=== PATIENT | male | born 1990 | race Caucasian/White ===

== ENCOUNTER 2021-07-03 09:00 | Emergency (ER) | payer BC, SELFPAY ==
[2021-07-03 09:05] VITALS: BP 139/84; PULSE 98; RESP 21; TEMP 37.2; O2SAT 98; BMI 27.1
[2021-07-03 09:42] LABS: UTC Influenza A Antigen Negative (Negative); UTC Influenza B Antigen Negative (Negative)
--- NOTE | 2021-07-03 09:44 | HMH.EDUTC ---
[facility] [place] Clinical Impression: COVID-19 virus test result unknown Maxillary sinusitis Qualifiers: Chronicity: acute Recurrence: non-recurrent Qualified Code(s): J01.00 - Acute maxillary sinusitis, unspecified Disposition: Home, Self-Care Condition on Discharge: Good Instructions: DI for Sinusitis, How to Care for Someone with COVID-19 Additional Instructions: Start antibiotic patient to take as ordered for a full length of time even if you feel better. Sinus infections do not get better overnight. It may take 2-3 days to notice much improvement so be sure to use conservative measures as discussed for symptoms. Flonase 1 spray each nostril daily to help with nasal congestion, sinus and ear pressure/information Increase fluids Humidifier/vaporizer as needed Tylenol and ibuprofen as needed for fever or pain. If symptoms do not improve or get worse return or be seen in the ER Follow-up with primary care this week covid swab was sent to lab, call later today for results. self isolate until test results are known to be negative Prescriptions: Fluticasone Propionate [Flonase 50mcg nasal spray 16gm] 1 spr NS DAILY 14 Days #9.9 ml Prescription Printed Azithromycin [Zithromax 250mg tab] 250 mg PO DIRECTED #6 tab Prescription Printed Referrals: Provider,Referral, MD [Primary Care Provider] - Forms: Work/School Release Time of Disposition: 09:49 Medical Decision Making - Dedrick Inquiry Pt receiving controlled substance: No Vital Signs: 07/03/21 09:05 Temperature 99.0 F Temperature Source Oral Pulse Rate [Right Brachial] 98 H Respiratory Rate 21 Blood Pressure [Right Arm] 139/84 Blood Pressure Mean [Right Arm] 102 Blood Pressure Source [Right Arm] Automatic Cuff Blood Pressure Position [Right Arm] Sitting 02 Sat by Pulse Oximetry 98 Oxygen Delivery Method Room Air - Lab Data Lab Results 07/03/21 09:28: Influenza Type A Ag Negative, Influenza Type B Ag Negative Orders (Tests/Meds): ORDERS Category Date Time Status Covid-19 Nasal PCR ([facility]) Routine Lab 07/03/21 09:28 [place]dered [facility] [place] - General Chief complaint: [facility] Stated complaint: covid symptoms Time Seen by Provider: 07/03/21 09:44 Mode of Arrival: Ambulatory Source of Information: Patient Limitations: No Limitations Description of Symptoms (Recalled from Triage Doc. by RN): PATIENT C/O CONGESTION, FEVER, AND BODY ACHES X 3 DAYS HEENT Symptoms (Recalled from RN notes): Yes Resp Symptoms (Recalled from RN notes): No Skin Symptoms (Recalled from RN notes): No MS Symptoms (Recalled from RN notes): No Functional Status (Recalled from RN notes): WNL - History of Present Illness Provider Complaint: 30 yr old male presents for dark yellow nasal congetion,sinus pressure,sinus pain, fever and body aches for 3 days - Related Data Previous Rx's Medication Instructions Recorded Azithromycin [Z-Taco 250mg Tab*] 250 mg PO UD DOSE PK #6 tab 02/10/19 Azithromycin [Zithromax 250mg 250 mg PO DIRECTED #6 tab 07/03/21 tab] Fluticasone Propionate [Flonase 1 spr NS DAILY 14 Days #9.9 ml 07/03/21 50mcg nasal spray 16gm] Allergies Allergy/AdvReac Type Severity Reaction Status Date / Time No Known Allergies Allergy Verified 02/10/19 15:53 - Worker's Comp Is this a Worker's Comp case?: No [facility] History - Hepatitis A Screen Drug use history?: No High risk sexual behaviors?: No History of sexually transmitted infection?: No Currently employed?: No Childcare worker?: No Do you have indoor plumbing?: Yes Do you have electricity?: Yes Attestation statement:: This patient has been screened for Hepatitis A risk factors. I have reviewed the patient's past medical history: Yes Fractures: Yes (THUMB) - Social History Alcohol Intake: never Occupational Status: other ROS Obtained: Yes Systems reviewed as appropriate & no additional complaints - Constitutional Constitutional: Repor
[2021-07-03 09:54] VITALS: BP 139/84; PULSE 98; RESP 21; TEMP 37.2; O2SAT 98
== END 2021-07-03 10:00 | disposition home or self-care (01) ==
PROVIDERS: Nurse Practitioner; Emergency Provider Nurse Practitioner Family
DX: J01.00 Acute maxillary sinusitis, unspecified (principal); Z20.822 Contact with and (suspected) exposure to COVID-19
CPT/HCPCS: 87804; 99202; C9803; G0463; U0003; U0005

== ENCOUNTER 2021-07-29 09:07 | Emergency (ER) | payer BC, SELFPAY ==
[2021-07-29 09:25] VITALS: BP 135/73; PULSE 113; RESP 24; TEMP 38.8; O2SAT 97; BMI 29.2
--- NOTE | 2021-07-29 09:45 | HMH.EDUTC ---
[facility] [place] Clinical Impression: Viral upper respiratory tract infection with cough Disposition: Home, Self-Care Condition on Discharge: Good Instructions: Cough, DI for COVID-19 (Suspected or Confirmed ), Sore Throat Additional Instructions: *Monitor Temp, Over the counter Motrin or Tylenol as directed/as needed Tylenol every 4 hours and Motrin every 6 hours (as long as your family doctor has told you that you can take it) for fever or pain. and straight to ER if unable to lower temp less than 101.0 after medication given *Warm salt water gargles may help to soothe the throat *Throat Lozenges *Warm fluids like tea with honey may help to soothe the throat *Sleep elevated *Humidifier/Vaporizer Your throat swab was sent for culture. Those results are typically sent to your primary care. Be sure to follow up in 2-3 days with your family doctor/primary care physician if no improvement so they can review those result and treat if necessary. If you don?t have a primary care doctor, I recommend you get one but in the mean time, you will have to return to a walk in clinic Follow up IMMEDIATELY for new or worsening symptoms or no Noticeable improvement over the next 48-72 hours. 911 for difficulty breathing or swallowing You were tested for today for COVID19 your test result should be back in the next 24-48 hours, you may check your results on the [facility] my health Portal if you have trouble logging on you can call Tech Support You was given a handout with instructions for Self Quarantine and Self isolation for while you wait on test results and what to do if they are positive If you are positive the Health Dept will be contacting you also Make sure to take your Vitamins Vit. C Vit D and Zinc if you can take them Prescriptions: Brompheniramine/Pseudoephed/Dm [Bromfed Dm Cough Syrup] 5 - 10 ml PO Q46H PRN #200 ml PRN Reason: Cough Transmission Status: Pending to [facility] #[id number] Referrals: Monae Boss APRN [Primary Care Provider] - Forms: Work/School Release Time of Disposition: 10:31 Medical Decision Making - Dedrick Inquiry Pt receiving controlled substance: No Dedrick was queried for this patient: No Vital Signs: 07/29/21 09:25 07/29/21 09:58 Temperature 101.8 F H 101.8 F H Temperature Source Oral Pulse Rate 113 H Pulse Rate [Left Brachial] 113 H Respiratory Rate 24 24 Blood Pressure 135/73 Blood Pressure [Left Arm] 135/73 Blood Pressure Mean [Left Arm] 93 Blood Pressure Source [Left Arm] Automatic Cuff Blood Pressure Position [Left Arm] Sitting 02 Sat by Pulse Oximetry 97 Oxygen Delivery Method Room Air - Lab Data Lab results reviewed: Yes: I reviewed the patient's lab results. Lab Results 07/29/21 09:42: Group A Strep Rapid Negative 07/29/21 09:42: Influenza Type A Ag Negative, Influenza Type B Ag Negative Orders (Tests/Meds): ED MEDICATIONS Discontinued Medications Generic Name Dose Route Start Last Admin Trade Name Edgar PRN Reason Stop Dose Admin Ibuprofen 800 mg 07/29/21 09:42 07/29/21 09:44 Ibuprofen 400 Mg Tablet PO 07/29/21 09:43 800 mg ONCE ONE Administration ORDERS Category Date Time Status Covid-19 Nasal PCR ([facility]) Routine Lab 07/29/21 09:41 Received Strep Screen Confirmation Stat Micro 07/29/21 09:42 Received [facility] UTC HPI - General Stated complaint: sore throat, cough, runny nose headache, congestio Time Seen by Provider: 07/29/21 09:45 Mode of Arrival: Ambulatory Source of Information: Patient Limitations: No Limitations Description of Symptoms (Recalled from Triage Doc. by RN): PATIENT C/O FEVER, COUGH, MUSCLE ACHES AND HEADACHES SINCE YESTERDAY HEENT Symptoms (Recalled from RN notes): Yes Resp Symptoms (Recalled from RN notes): Yes Skin Symptoms (Recalled from RN notes): No MS Symptoms (Recalled from RN notes): Yes Functional Status (Recalled from RN notes): WNL - History of Present Illness Provider Complaint: Patient stat
[2021-07-29 09:54] LABS: UTC Influenza A Antigen Negative (Negative); UTC Influenza B Antigen Negative (Negative)
[2021-07-29 09:58] VITALS: BP 135/73; PULSE 113; RESP 24; TEMP 38.8; O2SAT 97
[2021-07-29 10:26] LABS: Strep Scrn Group A (Rapid) Negative (Negative)
== END 2021-07-29 10:42 | disposition home or self-care (01) ==
PROVIDERS: Emergency Provider Nurse Practitioner; PCP Nurse Practitioner Family
DX: U07.1 COVID-19 (principal); J06.9 Acute upper respiratory infection, unspecified; F17.210 Nicotine dependence, cigarettes, uncomplicated
CPT/HCPCS: 87430; 87804; 99203; C9803; G0463; U0003; U0005

== ENCOUNTER 2022-03-03 16:18 | Emergency (ER) | payer BC, SELFPAY ==
--- NOTE | 2022-03-03 17:51 | EXP.UTC ---
Discharge Plan Disposition Patient Disposition: Home, Self-Care Condition: Good Prescriptions Prescriptions: New ibuprofen [IBU] 800 mg tablet 800 mg PO Q8HP PRN (Reason: Moderate Pain) Qty: 30 0RF etjbxsapnqjrkos-hovmnklbc-HR [Bromfed DM] 2-30-10 mg/5 mL Syrup 5 ml PO Q6H PRN (Reason: Cough) Qty: 240 0RF ondansetron 4 mg Tablet,Disintegrating 4 mg PO Q8H PRN (Reason: Nausea) Qty: 20 0RF No Action nacmfgqduoswfkm-rmpreuium-QC 118 ML syrup 5 - 10 ml PO Q46H PRN (Reason: Cough) Qty: 200 0RF Referrals Referrals: Monae Boss APRN [Primary Care Provider] - Enter time for follow up Activity Restrictions/Add. Instructions Additional Instructions/Restrictions: Drink plenty of fluids. Take tylenol for pain or fever. Return if you begin to have difficulty breathing. Follow up with your regular doctor. GO TO THE ER FOR ANY WORSENING SYMPTOMS Quarantine until you know the results of your covid-19 test. Notify your school or workplace of your results and follow their instructions regarding return to work/school. Clinical Impressions Clinical Impression: Close exposure to COVID-19 virus, Acute viral syndrome Stand Alone Forms Stand Alone Forms: Work/School Release Instructions Patient Instructions: Coronavirus Disease 2019, Preventing the Spread of Coronavirus Discharge Instructions Discharge ED Provider: Seth Lima [facility] [place] General Stated complaint: covid exposure, fever, body aches Time Seen by Provider: 03/03/22 17:52 History of Present Illness Provider Complaint: He states that for the past 2 days he has had sinus congestion, sore throat and body aches. Related Data Previous Rx's Medication Instructions Recorded gntdfsdxkulqzzk-xypvteynajjcmls-GR 5 - 10 ml PO Q46H PRN Cough #200 mL 07/29/21 2 mg-30 mg-10 mg/5 mL oral syrup ruhjxzjtmqgoklt-hdeuxzafqvbthxb-HG 5 ml PO Q6H PRN Cough #240 mL 03/03/22 2 mg-30 mg-10 mg/5 mL oral syrup (Bromfed DM) ibuprofen 800 mg tablet (IBU) 800 mg PO Q8HP PRN Moderate Pain 03/03/22 #30 tabs ondansetron 4 mg disintegrating 4 mg PO Q8H PRN Nausea #20 tabs 03/03/22 tablet Allergies Allergy/AdvReac Type Severity Reaction Status Date / Time No Known Allergies Allergy Verified 03/03/22 18:02 PFSH PFSH Social History Smoking Status: Current every day smoker tobacco type: cigarettes packs per day: 1 alcohol intake: current current occupational status: other ROS Obtained: Yes All systems reviewed & no additional complaints except as documented Constitutional Constitutional: Reports chills and Reports fever(s) Eyes Eyes: Denies eye discharge ENT Ears, Nose, Mouth, and Throat: Reports as per HPI Cardiovascular Cardiovascular: Denies chest pain Respiratory Respiratory: Denies chest congestion and Reports cough Gastrointestinal Gastrointestingal: Reports nausea; Denies abdominal pain, constipation, cramping, diarrhea or vomiting Musculoskeletal Musculoskeletal: Denies arthralgias Integumentary/Breasts Skin/Breast: Denies rash Neurologic Neurologic: Denies paresthesias Physical Exam General General appearance: alert and in no apparent distress Head Head exam: atraumatic and normocephalic Eye Eye exam: Present normal appearance, PERRL and EOMI ENT ENT exam: Present normal exam, normal oropharynx, mucous membranes moist and TM's normal bilaterally Neck Neck exam: Present normal inspection, full ROM and trachea midline; Absent tenderness, meningismus or lymphadenopathy Chest Chest inspection: Present normal inspection and symmetric chest wall rise; Absent tenderness Respiratory Respiratory exam: Present normal lung sounds bilaterally; Absent respiratory distress, wheezes or stridor Cardiovascular Cardiovascular exam: Present regular rate, normal rhythm and normal heart sounds Abdominal Exam Abdominal exam: Present soft and normal bowel sounds; Absent distent
[2022-03-03 18:00] VITALS: BP 144/77; PULSE 90; RESP 16; TEMP 37.8; O2SAT 98; BMI 28.5
[2022-03-03 18:30] VITALS: BP 144/77; PULSE 90; RESP 16; TEMP 37.2
== END 2022-03-03 18:32 | disposition home or self-care (01) ==
PROVIDERS: Emergency Provider Nurse Practitioner Family; PCP Nurse Practitioner Family
DX: U07.1 COVID-19 (principal); J02.9 Acute pharyngitis, unspecified; R11.0 Nausea; M79.10 Myalgia, unspecified site; F17.210 Nicotine dependence, cigarettes, uncomplicated; Z79.1 Long term (current) use of non-steroidal anti-inflammatories (NSAID)
CPT/HCPCS: 99213; C9803; G0463; U0003; U0005

== ENCOUNTER 2023-01-04 08:01 | Emergency (ER) | payer BC, SELFPAY ==
[2023-01-04 08:05] VITALS: BP 147/97; PULSE 66; RESP 18; TEMP 36.9; O2SAT 98; BMI 30.2
--- NOTE | 2023-01-04 08:15 | XR_ITS ---
FINAL REPORT CLINICAL HISTORY: pain in lower ribs FINDINGS: RIGHT RIB SERIES 3 views of the right ribs were obtained. There is no displaced rib fracture. There is no pneumothorax or pleural fluid collection. A frontal view of the chest is unremarkable. IMPRESSION: No displaced rib fracture is identified. Reviewed, Interpreted and Dictated by Ron Tello III, MD Transcribed by Shy Haynes Authenticated and . [facility]
--- NOTE | 2023-01-04 08:23 | EXP.UTC ---
Discharge Plan Disposition Patient Disposition: Home, Self-Care Condition: Good Referrals Follow up/Referrals: Monae Sutton APRN [Primary Care Provider] - See instructions Activity Restrictions/Add. Instructions Additional Instructions/Restrictions: *Ibuprofen anthony 6 hours with meal as needed for pain/inflammation *Not additional anti-inflammatory like motrin, aleve, advil with the above amount of ibuprofen. You can still take Tylenol every 4 hours as needed if you need something else for pain *Keep this area active, no movement leads to more stiffness, However take it easy and avoid heavy lifting pushing or pulling *Follow up with you family doctor if no improvement for further treatment Make sure that you are having normal bowel movements and sometimes trapped gas can cause pain and discomfort over the counter Gas x may help ???Straight to ER if pain worsens or any life threatening symptoms? Clinical Impressions Clinical Impression: Rib pain on right side Stand Alone Forms Stand Alone Forms: Work/School Release Instructions Patient Instructions: Ibuprofen Discharge ED Provider: Marley Romero [facility] General Stated complaint: Abd pain headaches Mode of Arrival: Ambulatory Source of Information: Patient Limitations: No Limitations Time Seen by Provider: 01/04/23 08:23 Description of Symptoms (Recalled from Triage Doc. by RN): PATIENT C/O PAIN TO RIGHT LOWER RIB AREA AND LOW ENERGY SINCE YESTERDAY HEENT Symptoms (Recalled from RN notes): No Resp Symptoms (Recalled from RN notes): No Skin Symptoms (Recalled from RN notes): No MS Symptoms (Recalled from RN notes): Yes Functional Status (Recalled from RN notes): WNL History of Present Illness Provider Complaint: Patient states that he has been having pain in his right lower rib area and feels better when he leans to the side to stretch the area to help relieve the pain States that it started yesterday Denies radiation to anywhere and denies known injury Denies worsening with food or eating Last BM yesterdayStates he did have a headache last night but it is gone now and feeling tired Related Data Allergies Allergy/AdvReac Type Severity Reaction Status Date / Time No Known Allergies Allergy Verified 10/02/22 10:45 Worker's Comp Is this a Worker's Comp case?: No [facility] Disclaimer: The information contained in this section may have been updated after the patient was seen, as this information can be updated by other users. Social History (Updated 03/03/22 @ 22:30 by Seth Lima APRN) Smoking Status: Current every day smoker tobacco type: cigarettes packs per day: 1 alcohol intake: current substance use type: denies use current occupational status: other Travel in the last 8 weeks: None ROS Obtained: Yes All systems reviewed & no additional complaints except as documented and Yes Systems reviewed as appropriate & no additional complaints except as documented Constitutional Constitutional: Reports system reviewed and no additional complaints, except as documented, Reports as per HPI, Denies body ache, Denies chills, Reports fatigue, Denies fever(s) and Reports headache(s) (last night but gone now) ENT Ears, Nose, Mouth, and Throat: Reports system reviewed and no additional complaints, except as documented, Reports as per HPI and Reports headache(s) (last night but gone now) Cardiovascular Cardiovascular: Reports system reviewed and no additional complaints, except as documented, Reports as per HPI, Denies chest pain and Denies dyspnea Respiratory Respiratory: Reports system reviewed and no additional complaints, except as documented, Reports as per HPI, Denies shortness of breath, Denies cough and Denies dyspnea Gastrointestinal Gastrointestingal: Reports system reviewed and no additional complaints, except as documented and as per HPI; Denies abdominal pain Musculoskeletal Musculoskeletal: Reports system reviewed and no additional co
[2023-01-04 09:24] VITALS: BP 147/97; PULSE 66; RESP 18; TEMP 36.9; O2SAT 98
== END 2023-01-04 09:30 | disposition home or self-care (01) ==
PROVIDERS: Emergency Provider Nurse Practitioner; PCP Nurse Practitioner Family
DX: R07.81 Pleurodynia (principal); F17.210 Nicotine dependence, cigarettes, uncomplicated
CPT/HCPCS: 71101; 99212; 99214; G0463

== ENCOUNTER 2024-12-15 11:47 | Outpatient (CLI) | payer BC, SELFPAY ==
--- OUTSIDE RECORDS SUMMARY | 2024-12-15 11:54 | XMS_ITS | Clinical Summary ---
Author Organization [facility] Address [address] [place] [id number] Phone [email or web address] Care Team Providers Care Technical Report Writer Name Role Phone Unavailable Primary Care Provider Unavailabl e Allergies No known active allergies Medications No known medications Active Problems Problem Noted Date Diagnosed Date General medical examination 08/14/2012 Overview (12/05/2017): Health examination of defined subpopulation 12/08 Overview (12/05/2017): Social History Tobacco Use Types Packs/Day Years Used Date Smoking Tobacco: Some Days Cigarettes Smokeless Tobacco: Former Chew Intimate Partner Violence Answer Date R ecorded Insults You Not on file 10/20/2020 Threatens You Not on file 10/20/2020 Screams at You Not on file 10/20/2020 Physically Hurt Not on file 10/20/2020 Intimate Partner Violence Score Not on file 10/20/2020 Stress Answer Date Recorded Stress in your Life Not on file 05/12/2024 Dealing with Stress 3 05/12/2024 Sex and Gender Information Value Date Recorded Sex Assigned at Not on file Legal Sex Male 12:18 PM CDT Gender Identity Not on file Sexual Orientation Not on file Last Filed Vital Signs Vital Sign Reading Time Taken Comments Blood Pressure 130/80 02/20/2019 3:01 PM EDT Pulse 94 08/18/2020 10:03 AM EST Temperature 37.2 C (99 F) 08/09/2021 6:38 PM EST Respiratory Rate - - Oxygen Saturation 97% 08/18/2020 10:03 AM EST Inhaled Oxygen Concentration - - Weight 97.1 kg (214 lb) 02/20/2019 2:43 PM EDT Height 182.9 cm (6') 02/20/2019 2:43 PM EDT Body Mass Index 29.02 02/20/2019 2:43 PM EDT Plan of Treatment Health Maintenance Due Date Last Done Comments Dental Cleaning/Exam 1990 HIV Screening 1990 Hepatitis C Screening 1990 Hep B Infection Screening - Triple Screen 2008 Hepatitis B Immunization (1 of 3 - 19+ 3-dose series) 2009 Pneumococcal: Ped (0 to 5 Yr s) and At-Risk Member (6 to 64 Yrs) (1 of 2 - PCV) 2009 Tetanus Diphtheria and Pertu ssis Immunization (1 - Tdap) 2009 Annual Preventive Exam 08/22/2019 08/22/2018 Covid-19 Immunization (1 - 2 -25 season) 2024 Influenza Immunization (Seas on Ended) 2025 HIB Immunization Aged Out No longer e ligible based on patient's age to complete this topic HPV Immunization Aged Out No longer e ligible based on patient's age to complete this topic Hepatitis A Immunization Aged Out No longer eligible based on patient's age to complete this topic Polio Immunization Aged Out No longer eligible based on patient's age to complete this topic Varicella Immunization Aged Out No lo nger eligible based on patient's age to complete this topic Insurance [place] [id number] [place] [address]
[2024-12-15 12:29] LABS: Basophils % 0.5 % (0.1-2.0); Eosinophils % 0.3 % (0.1-12.0); Hematocrit 44.8 % (42.0-52.0); Hemoglobin 15.4 g/dL (14.1-18.0); Immature Granulocytes # 0.02 10^3uL; Immature Granulocytes % 0.3 %; Lymphocytes # 1.8 K/mm3 (0.7-4.5); Lymphocytes % 27.7 % (10-50); Mean Corpuscular HGB Conc 34.4 g/dL (31.8-35.4); Mean Corpuscular Hemoglobin 30.3 pg (27.0-31.2); Monocytes # 0.4 K/mm3 (0.1-1.0); Monocytes % 6.6 % (1.7-9.3); Neutrophils # 4.3 K/mm3 (1.8-7.8); Neutrophils % 64.6 % (37.0-80.0); Nucleated Red Blood Cells # 0 10^3/uL; Nucleated Red Blood Cells % 0 %; Platelet Count 352 K/mm3 (142-424); Red Blood Count 5.09 M/mm3 (4.60-6.20); Red Cell Distribution Width 11.5 % (11.5-17.5); Red Cell Distribution Width-SD 37.3 fL; White Blood Count 6.7 K/mm3 (4.8-10.8)
[2024-12-15 13:26] LABS: Albumin Level 4.8 g/dl (3.5-5.0); Chloride 105 mmol/L (98-107); Potassium 4.2 mmoL/L (3.5-5.1); Sodium 140 mmol/L (136-145)
[2024-12-15 13:29] LABS: Alanine Aminotransferase 34 U/L (12-78); Albumin/Globulin Ratio 1.6 (1.1-1.8); Alkaline Phosphatase 99 U/L (38-126); Anion Gap 10.2 mEq/L (5-15); Aspartate Amino Transferase 31 U/L (17-59); Bilirubin,Total 0.6 mg/dl (0.2-1.3); Blood Urea Nitrogen 10 mg/dl (9-20); Calcium 9.6 mg/dl (8.4-10.2); Carbon Dioxide 29 mmol/L (22.0-30.0); Estimated Glomerular Filt Rate 97 ml/min (>60); GFR (African American) 118 ML/MIN (>60); Glucose 103 mg/dl (74-100); Total Protein,Serum 7.8 g/dl (6.3-8.2)
[2024-12-15 14:00] LABS: Thyroid Stimulating Hormone 1.76 uIU/mL (0.465-4.68)
[2024-12-15 17:23] LABS: 25-OH Vitamin D, Total 34.5 ng/mL (30-100)
[2024-12-15 18:02] LABS: Vitamin B12 759 pg/mL (239-931)
[2024-12-17 10:02] LABS: Hemoglobin A1C 5.4 % (4.0-6.0)
== END 2024-12-15 23:59 | disposition home or self-care (01) ==
LOC: RT 11:48
PROVIDERS: PCP Nurse Practitioner Family; Visit Provider Nurse Practitioner Family
DX: R55 Syncope and collapse (principal); R42 Dizziness and giddiness; R20.2 Paresthesia of skin; R73.09 Other abnormal glucose
CPT/HCPCS: 36415; 80053; 82306; 82607; 83036; 84443; 85025; 93225; 93226

== ENCOUNTER 2025-01-14 14:14 | Outpatient (CLI) | payer BC, SELFPAY ==
--- NOTE | 2025-01-14 | CA_ITS ---
APPROVED REPORT EXAM: Comprehensive 2D, Doppler, and color-flow Echocardiogram Revenue Specialist: Janelle Lovelace, LEIDY, RVS Ht: 6 ft 0 in Wt: 210lbs BSA: 2.18 BP: 142/85 mmHg Indications: Dizziness, Palpitations, HTN Echo Enhancing Agent Indication: Rule Out Septal Defect Agent(s) / Amount(s) Used: Agitated Saline 20 cc Comments: Negative 2D Dimensions Left Atrium 3.01 cm LA Volume 38.00 mL LA Volume Index [id number] mL/m2 (M/F) 16-34 M-Mode Dimensions RVDd 2.18 cm (0.9-2.6) LA Diam 3.73 cm (1.9-4.0) LVDd 5.80 cm (3.5-5.7) LVDs 3.61 cm (3.5-5.7) IVSd 1.00 cm (0.6-1.1) PWd 0.97 cm (0.6-1.1) EF (Teich) 67.10% EPSs 0.57 cm FS 37.80% EDV (Teich) 166.60 mL TAPSE 3.19 (<1.7) ESV (Teich) 54.80 mL LV Diastology E Decel Time 257 (160-240 msec) E/A Ratio 1.51 MED A' 14.70 cm/s LAT A' 10.00 cm/s Aortic Valve ELIESER Index 1.26 cm2/m2 AoV Peak Josef. 153.0 (50-130 cm/s) AO Peak GR. 9.40 mmHg AO Mean GR. 4.70 (<5 mmHg) AO VTI 26.6 (18-25 cm) ELIESER (VTI) 2.81 (2.5-4.5 cm2) Mitral Valve MV A Velocity 53.0 (40-130 cm/s) E/A Ratio 1.51 Pulmonary Valve IN End VMAX 180.0 cm/s Tricuspid Valve TR P. Velocity 168.00 cm/s Left Ventricle The left ventricle is normal size. The left ventricular systolic function is normal. The left ventricular ejection fraction is within the normal range. There is normal left ventricular wall thickness. There is normal LV segmental wall motion. The left ventricular diastolic function is normal. LVEF is 55%. Right Ventricle The right ventricle is normal size. The right ventricular systolic function is normal. Atria The left atrium size is normal. The right atrium size is normal. There is no Doppler evidence of interatrial shunt. Agitated saline administration demonstrates no evidence of interatrial shunt. Aortic Valve The aortic valve opens well. The aortic valve is trileaflet. There is no aortic valvular stenosis. No aortic regurgitation is present. Mitral Valve The mitral valve is normal in structure. No evidence of mitral valve stenosis. There is no mitral valve regurgitation noted. Tricuspid Valve Tricuspid valve is grossly normal in structure and function. Trace tricuspid regurgitation. There is insufficient TR jet to estimate RVSP. Pulmonic Valve The pulmonary valve is normal in structure. Trace pulmonic regurgitation. Great Vessels The aortic root is normal in size. IVC is normal in size and collapses >50% with inspiration. Pericardium There is no pericardial effusion. Other Information Study Quality: Adequate Conclusion Normal biventricular systolic function. No significant valvular stenosis or regurgitation. There is no Doppler evidence of interatrial shunt. Agitated saline administration demonstrates no evidence of interatrial shunt. Electronically signed by : Prisca Owen MD 01/20/2025 00:00:43
--- OUTSIDE RECORDS SUMMARY | 2025-01-14 14:16 | XMS_ITS | Clinical Summary ---
Author Organization [facility] Address [address] [place] [id number] Phone [email or web address] Care Team Providers Care Cad[employer] Piping Designer Name Role Phone Unavailable Primary Care Provider [...] - 2 -25 season) 2024 Influenza Immunization (#1) 2025 HIB Immunization Aged Out No longer [...] topic Insurance [place] [id number] [place] [address]
== END 2025-01-14 23:59 | disposition home or self-care (01) ==
LOC: RT 14:14
PROVIDERS: PCP Nurse Practitioner Family; Visit Provider Nurse Practitioner Family
DX: I10 Essential (primary) hypertension (principal); R00.2 Palpitations; R42 Dizziness and giddiness; R07.89 Other chest pain
CPT/HCPCS: 93306